=== PATIENT | female | born 1950 | race Caucasian/White ===

== ENCOUNTER 2018-12-31 12:59 | Emergency (ER) | payer BC, MEDICARE ==
[2018-12-31] MEDS ORDERED: traMADol 50 MG Tab PO ONE (14:46)
--- NOTE | 2018-12-31 14:50 | EDM.PDOC ---
ED HPI GENERAL MEDICAL PROBLEM - General Chief Complaint: Lower Extremity Injury/Pain Stated Complaint: RIGHT HIP PAIN Time Seen by Provider: 12/31/18 14:35 Source of Information: Reports: Patient, RN History Limitations: Reports: Other (no old records, from out of town) - History of Present Illness INITIAL COMMENTS - FREE TEXT/NARRATIVE: 68 yo female presents with L hip pain with inability to bare weight that occurred when she was swinging a golf club. Took ibuprofen and acetaminophen before arrival with minimal relief. Is here with her . 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 Right Hip Pain Score (Numeric/FACES): 9 - Related Data Allergies Allergy/AdvReac Type Severity Reaction Status Date / Time codeine AdvReac Vomiting Verified 12/31/18 14:30 hydrocodone AdvReac Vomiting Verified 12/31/18 14:30 Home Meds: Home Meds Aspirin [Halfprin] 1 tab PO DAILY 12/31/18 [History] Metoprolol Tartrate 1 tab PO BID 12/31/18 [History] Niacinamide [Niacin] 500 mg PO BID 12/31/18 [History] hydroCHLOROthiazide [Hydrochlorothiazide] 1 tab PO DAILY 12/31/18 [History] traMADol [Ultram] 50 - 100 mg PO Q6H PRN #30 tab 12/31/18 [Rx] Past Medical History HEENT History: Reports: Cataract, Hard of Hearing Cardiovascular History: Reports: High Cholesterol, Hypertension 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: , 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 Musculoskeletal History: Reports: Fracture Oncologic (Cancer) History: Reports: Basal Cell Carcinoma - Past Surgical History HEENT Surgical History: Reports: Cataract Surgery, Tonsillectomy Female Surgical History: Reports: Hysterectomy Social & Family History - Tobacco Use Smoking Status *Q: Former Smoker Used Tobacco, but Quit: Yes Month/Year Tobacco Last Used: 07/2018 - Recreational Drug Use Recreational Drug Use: No Review of Systems - Review of Systems Review Of Systems: See Below Constitutional: Reports: No Symptoms Eyes: Reports: No Symptoms Ears: Reports: No Symptoms Nose: Reports: No Symptoms Mouth/Throat: Reports: No Symptoms Respiratory: Reports: No Symptoms Cardiovascular: Reports: No Symptoms GI/Abdominal: Reports: No Symptoms Genitourinary: Reports: No Symptoms Musculoskeletal: Reports: Joint Pain (L hip) Skin: Reports: No Symptoms Neurological: Reports: No Symptoms ED EXAM, GENERAL - Physical Exam Exam: See Below Exam Limited By: No Limitations General Appearance: Alert, WD/WN, No Apparent Distress Eye Exam: Bilateral Eye: Normal Inspection Ears: Normal External Exam, Normal Canal, Hearing Grossly Normal Ear Exam: Bilateral Ear: Auricle Normal, Canal Normal Nose: Normal Inspection, No Blood Throat/Mouth: Normal Voice, No Airway Compromise Head: Atraumatic, Normocephalic Respiratory/Chest: No Respiratory Distress, No Accessory Muscle Use Extremities: Normal Inspection, No Pedal Edema. No: Normal Range of Motion, Non -Tender Neurological: Alert, Oriented, CN II-XII Intact, Normal Cognition, No Motor/ Sensory Deficits Psychiatric: Normal Affect, Normal Mood Skin Exam: Warm, Dry, Intact, Normal Color, No Rash Course - Vital Signs Last Recorded V/S: Last Vital Signs Temp 36.3 C 12/31/18 14:28 Pulse 86 12/31/18 15:44 Resp 18 12/31/18 14:28 BP 163/86 H 12/31/18 15:44 Pulse Ox 92 L 12/31/18 15:44 - Orders/Labs/Meds Meds: Medications Discontinued Medications Generic Name Dose Route Start Last Admin Trade Name Freq PRN Reason Stop Dose Admin Tramadol HCl 100 mg 12/31/18 14:46 12/31/18 14:51 Ultram PO 12/31/18 14:47 100 mg ONETIME ONE Administration - Radiology Interpretation Free Text/Narrative:: L hip X-ray-neg Departure - Departure Time of Disposition: 16:00 Disposition: Home, Self-Care 01 Condition: Fair Clinical Impression: Left hip pain - Discharge Information *PRESCRIPTION DRUG MONITORING PROGRAM REVIEWED*: No *COPY OF PRESCRIPTION DRUG MONITORING REPORT IN PATIENT LOAN: No Prescriptions: traMADol [Ultram] 50 - 100 mg PO Q6H PRN #30 tab PRN Reason: Pain Instructions: Hip Pain Referrals: PCP,None [Primary Care Provider] - Forms: ED Department Discharge Additional Instructions: Use a walker to assist with ambulation. Take ibuprofen 400 mg every 6 hrs with food and acetaminophen up to 1000 mg every 6 hrs as needed. For added relief take your tramadol as directed. See your doctor for recheck as soon as possible. Stay off your feet as much as you can for the next couple of days.
--- NOTE | 2018-12-31 15:44 | CRLCR ---
Indication: Hip pain Technique: Two views of the right hip Comparison: None available Findings: Bones: Alignment is normal. No fractures or bone lesions. Joint spaces: Unremarkable. Soft tissues: Unremarkable. Impression: Negative. Dictated by Mello Parrish MD @ 12/31/2018 3:43:06 PM Dictated by: Mello Parrish MD @ 12/31/2018 15:43:14 (Electronically Signed)
[2018-12-31] MEDS ORDERED: Ondansetron 4 MG Tab.DIS PO ONE (16:05)
== END 2018-12-31 16:09 | disposition home or self-care (01) ==
LOC: JP.ED 12:59
DX: M25.552 Pain in left hip (principal); C44.91 Basal cell carcinoma of skin, unspecified; I10 Essential (primary) hypertension; Z88.5 Allergy status to narcotic agent; Z79.82 Long term (current) use of aspirin; Z79.899 Other long term (current) drug therapy; Z87.891 Personal history of nicotine dependence
CPT/HCPCS: 73502; 99283; A9270